=== PATIENT | male | born 1990 | race Two or more races ===

== ENCOUNTER 2017-11-17 10:59 | Emergency (ER) | payer OTHER ==
[~2017-11-17] VITALS: Ht 170.2 cm; Wt 72.6 kg
[~2017-11-17 10:59] MED LIST: KETO10TA2 PO
== END 2017-11-17 16:44 | disposition home or self-care (01) ==
LOC: ER 10:59
DX: K52.89 Other specified noninfective gastroenteritis and colitis (principal); J09.X2 Influenza due to identified novel influenza A virus with other respiratory manifestations

== ENCOUNTER 2018-08-18 20:59 | Emergency (ER) | payer OTHER ==
[~2018-08-18] VITALS: Ht 170.2 cm; Wt 70.8 kg
[2018-08-19] MEDS ORDERED: NORFLEX100MG PO (01:18)
[2018-08-19] MEDS ORDERED: KETO10TA2 PO (01:18)
== END 2018-08-19 01:36 ==
LOC: ER 20:59
DX: S30.1XXA Contusion of abdominal wall, initial encounter (principal); M62.838 Other muscle spasm; V49.9XXA Car occupant (driver) (passenger) injured in unspecified traffic accident, initial encounter; Y93.89 Activity, other specified; Y92.488 Other paved roadways as the place of occurrence of the external cause; Y99.8 Other external cause status

== ENCOUNTER 2020-01-10 15:52 | Outpatient (CLI) | payer OTHER ==
[~2020-01-10 15:52] MED LIST changes: +DICLOFENAC SODI75 MG PO; +NORFLEX100MG PO
== END 2020-01-10 16:15 | disposition home or self-care (01) ==
LOC: RAD 15:52 → LAB 15:52
PROVIDERS: ATTEND General Practice
DX: M25.571 Pain in right ankle and joints of right foot (principal); M25.561 Pain in right knee

== ENCOUNTER 2022-04-20 20:47 | Emergency (ER) | payer OTHER ==
[~2022-04-20] VITALS: Ht 170.2 cm; Wt 77.1 kg
== END 2022-04-21 02:20 | disposition home or self-care (01) ==
LOC: ER 20:47
DX: N50.811 Right testicular pain (principal); N43.3 Hydrocele, unspecified; N44.2 Benign cyst of testis

== ENCOUNTER 2024-08-02 01:32 | Emergency (ER) | payer OTHER ==
[~2024-08-02] VITALS: Ht 170.2 cm; Wt 72.6 kg
[2024-08-02 01:51] VITALS: BP 112/69; O2SAT 96
[2024-08-02] MEDS ORDERED: KETOROLAC TROMETHAMINE 60 MG VIAL IM STA (04:54)
[2024-08-02] MEDS ORDERED: KETO10TA2 PO (05:03)
== END 2024-08-02 05:14 ==
LOC: ER 01:34
DX: S93.492A Sprain of other ligament of left ankle, initial encounter (principal); X58.XXXA Exposure to other specified factors, initial encounter; Y93.67 Activity, basketball; Y92.89 Other specified places as the place of occurrence of the external cause; Y99.8 Other external cause status